=== PATIENT | female | born 1985 | race African-American/Black ===

== ENCOUNTER 2016-06-17 10:40 | Emergency (ER) | payer BC ==
[2016-06-17 10:50] VITALS: BP 129/81
--- NOTE | 2016-06-17 11:48 | ED ---
HPI Febrile Illness - HPI Summary HPI Summary: 31 week with twin - Past 24 hours- fever at home, tactile "burning up" - pain with deep breathing, coughing. Able to breath as well as before- difficult due to obstruction for twins. - H/O asthma, no recent exacerbations. - No complications thus from from , follows Dr. Bergman - Toña- digoxin for SVT, (believes normal heart rate is 90's) and vitamin - + increased coughing all night, pain at diaphragm - Denies SOB, leg swelling, calf pain, chest pain/ heart racing - ? Left lower back pain yesterday - + [employer] [place], have been occurring for weeks, no change to intensity/ frequency - History of Current Complaint Chief Complaint: EDUpperRespComplaint Time Seen by Provider: 06/17/16 10:59 Hx Obtained From: Patient Onset/Duration: Started Days Ago, Atraumatic, Still Present Temperature: 99.9 F Initial Severity: Mild Current Severity: Moderate Pain Intensity: 6 Pain Scale Used: 0-10 Numeric - Allergy/Home Medications Allergies/Adverse Reactions: Allergies Allergy/AdvReac Type Severity Reaction Status Date / Time Sulfa Antibiotics Allergy Severe N/V, Verified 06/17/16 10:44 "MAKES ME GASSY" Hydrocodone [From Vicodin] Allergy Itching Verified 06/17/16 10:44 PMH/Surg Hx/FS Hx/Imm Hx Endocrine/Hematology History: Denies: Hx Diabetes, Hx Thyroid Disease Cardiovascular History: Denies: Hx Hypertension Respiratory History: Reports: Hx Asthma Denies: Hx Chronic Obstructive Pulmonary Disease (COPD) GI History: Reports: Hx Ulcer Musculoskeletal History: Denies: Hx Rheumatoid Arthritis, Hx Osteoporosis, Hx Scoliosis Sensory History: Reports: Hx Contacts or Glasses Opthamlomology History: Reports: Hx Contacts or Glasses Neurological History: Denies: Hx Headaches, Other Neuro Impairments/Disorders Infectious Disease History: No Infectious Disease History: Denies: Hx Clostridium Difficile, Hx Hepatitis, Hx Human Immunodeficiency Virus (HIV), Hx of Known/Suspected MRSA, Hx Shingles, Hx Tuberculosis, History Other Infectious Disease, Traveled Outside the [place] in Last 30 Days - Family History Known Family History: Positive: None, Cardiac Disease, Hypertension, Diabetes - Social History Alcohol Use: None Substance Use Type: Reports: None Smoking Status (MU): Former Smoker Type: Cigarettes Amount Used/How Often: 1 cig a day currently, hasn't had any in one week Have You Smoked in the Last Year: Yes Review of Systems Positive: Chills Eyes: Negative ENT: Negative Cardiovascular: Negative Positive: Cough Gastrointestinal: Negative Genitourinary: Negative Musculoskeletal: Negative Skin: Negative Neurological: Negative Psychological: Normal All Other Systems Reviewed And Are Negative: Yes Physical Exam Triage Information Reviewed: Yes Vital Signs On Initial Exam: Initial Vitals Temp Pulse Resp BP Pulse Ox 99.9 F 109 16 129/81 99 06/17/16 10:44 06/17/16 10:44 06/17/16 10:44 06/17/16 10:44 06/17/16 10:44 Vital Signs Reviewed: Yes Appearance: Positive: Well-Appearing, Well-Nourished, Pain Distress - minimal pain with coughing, sore throat Skin: Positive: Warm, Skin Color Reflects Adequate Perfusion Head/Face: Positive: Normal Head/Face Inspection Eyes: Positive: Normal, EOMI ENT: Positive: Normal ENT inspection, Hearing grossly normal, Pharyngeal erythema - minimal erythema, no exudates seen, no swelling, TMs normal Neck: Positive: Supple, Nontender, No Lymphadenopathy Respiratory/Lung Sounds: Positive: Clear to Auscultation, Breath Sounds Present Cardiovascular: Positive: Normal, RRR, Pulses are Symmetrical in both Upper and Lower Extremities Abdomen Description: Positive: Nontender, Other: - measuring ~34 weeks gestation , +multigestational FHTs 140 two hrtbts found Musculoskeletal: Positive: Normal, Strength/ROM Intact Neurological: Positive: Normal, Sensory/Motor Intact, Alert, Oriented to Person Place, Time Diagnostics - Vital Signs Vital Signs Temp Pulse Resp BP Pulse Ox 06/17/16 11:23 99.3 F 93 15 100 06/17/16 10:44 99.9 F 109 16 129/81 99 - Laboratory Lab Statement: Any lab studies that have been ordered have been reviewed, and results considered in the medical decision making process. Course/Dx - Course Course Of Treatment: Discussed with Dr Alonzo, no tamiflu, no ABX OTC treatment, follow up with LICENSED PSYCHOLOGIST return to ER with increased SOB, chest pain. Patient has albuterol at home, script for lozenges given - Febrile Illness Differential Diagnoses: Cellulitis, Encephalitis, Meningitis, Pneumonia - Diagnoses Provider Diagnoses: Upper respiratory infection Discharge - Discharge Plan Condition: Stable Disposition: HOME Prescriptions: Acetaminophen TAB* [Tylenol TAB*] 650 mg PO Q4H PRN #60 tab PRN Reason: pain, fever Benzocaine-Menthol (Mouth-Thro [Cepacol Sore Throat 15-3.6 mg] 1 [place] MT Q3HR PRN #40 austen PRN Reason: Cough Patient Education Materials: Upper Respiratory Infection (ED) Referrals: Ingrid Islas MD [Primary Care Provider] - Additional Instructions: - Increase fluid intake - Follow up with LICENSED PSYCHOLOGIST within 24 hours if symptoms worsen or no improvement - Use humidifier to decrease coughing - REturn to ER with chest pain, shortness of breath, leg swelling, or calf pain - Cepacol for throat pain - Tylenol for fever, aches
[2016-06-17] MEDS ORDERED: Acetaminophen TAB* 325 MG PO ONE (12:02)
[2016-06-17 13:14] LABS: Urine Bacteria 1+ (Absent); Urine Bilirubin Negative (Negative); Urine Glucose Negative (Negative); Urine Nitrite Negative (Negative)
== END 2016-06-17 13:15 | disposition home or self-care (01) ==
LOC: ED 10:40
DX: O98.813 Other maternal infectious and parasitic diseases complicating pregnancy, third trimester (principal); J06.9 Acute upper respiratory infection, unspecified; O30.003 Twin pregnancy, unspecified number of placenta and unspecified number of amniotic sacs, third trimester; Z3A.31 31 weeks gestation of pregnancy; I47.1 Supraventricular tachycardia; O26.893 Other specified pregnancy related conditions, third trimester; Z88.2 Allergy status to sulfonamides; Z88.5 Allergy status to narcotic agent; O99.333 Smoking (tobacco) complicating pregnancy, third trimester
CPT/HCPCS: 81003; 81015; 87086; 87502; 99282; A9270-GY

== ENCOUNTER 2016-07-07 11:34 | Inpatient (IN) | payer OTHER ==
[2016-07-07] MEDS ORDERED: Lidocaine 1% MPF* 2 ML VIAL ONE (13:49)
[2016-07-07] MEDS ORDERED: Sodium Citrate/Citric Acid* 15 ML UDC PO ONE (14:00)
[2016-07-07 14:23] LABS: Hematocrit 33 % (35-47); Hemoglobin 10.8 g/dl (12.0-16.0); Mean Corpuscular HGB Conc 33 g/dl (31-36); Mean Corpuscular Hemoglobin 28 pg (27-31); Mean Corpuscular Volume 84 fL (80-97); Mean Platelet Volume 11 um3 (7.4-10.4); Red Cell Distribution Width 13 % (10.5-15)
[2016-07-07 14:30] LABS: Comments Flag Yes
[2016-07-07] MEDS ORDERED: ceFOXitin 2 GM IVPREMIX* 2 GM/50 ML BAG IVPB ONE (14:30)
[2016-07-07 14:32] LABS: Add Diff/Slide Review? Slide Review Added
[2016-07-07] MEDS ORDERED: Morphine PF AMP (0.5MG/ML)* 5 MG/10 ML AMP ONE (15:04)
[2016-07-07] MEDS ORDERED: Ondansetron INJ* 2 MG/ML VIAL ONE (16:05)
[2016-07-07] MEDS ORDERED: OXYTOCIN* 10 UNITS/ML 1 ML VIAL ONE (16:05)
[2016-07-07] MEDS ORDERED: fentaNYL* 50 MCG/ML 2 ML VIAL (100 MCG VIAL) ONE (16:08)
[2016-07-07] MEDS ORDERED: Midazolam* 1 MG/ML 2 ML VIAL (2 MG) ONE (16:08)
[2016-07-07] MEDS ORDERED: HYDROmorphone* 1 MG/ML 1 ML SYR ONE (16:18)
[2016-07-07] MEDS ORDERED: Witch Hazel PAD* JAR TOPICAL PRN (16:40)
[2016-07-07] MEDS ORDERED: Dibucaine 1% 28.35 GM TUBE PR PRN (16:40)
[2016-07-07] MEDS ORDERED: Acetaminophen TAB* 325 MG PO PRN (16:40)
[2016-07-07] MEDS ORDERED: Glycerin ADULT SUPP PR PRN (16:40)
[2016-07-07] MEDS ORDERED: oxyCODONE/Acetamin 5/325 MG* TAB PO PRN ×2 (16:40→18:56)
[2016-07-07] MEDS ORDERED: Oxytocin in LR* 20 UNITS/1,000 ML BAG IVPB SCH (17:00)
[2016-07-07] MEDS: oxyCODONE/Acetamin 5/325 MG* TAB PO PRN (18:39)
[2016-07-07] MEDS: Simethicone CHEW TAB* 80 MG PO SCH ×2 (18:40→21:05)
[2016-07-07] MEDS: Ibuprofen TAB* 600 MG PO PRN (18:40)
[2016-07-07] MEDS ORDERED: DiMENhydriNATE IV* 50 MG/ML VIAL IV PUSH PRN (18:56)
[2016-07-07] MEDS ORDERED: Nalbuphine* 20 MG/ML 1 ML VIAL IV PRN (18:56)
[2016-07-07] MEDS ORDERED: Naloxone* 0.4 MG/ML 1 ML VIAL IV PRN (18:56)
[2016-07-07] MEDS ORDERED: PROCHLORPERAZINE INJ 5 MG/ML 2 ML VIAL IV PRN (18:56)
[2016-07-07] MEDS ORDERED: diPHENhydraMINE IV* 50 MG/ML 1 ml VIAL (BENADRYL) IV PRN (18:56)
[2016-07-07] MEDS ORDERED: Scopolamine 1.5 mg* PATCH TRANSDERM SCH (19:00)
[2016-07-07] MEDS ORDERED: Scopolomine PATCH Remove* 1 NOTE MISC PATCH OFF SCH (19:00)
[2016-07-07] MEDS: Ondansetron INJ* 2 MG/ML VIAL IV PRN (20:57)
[2016-07-07] MEDS: Docusate CAP* 100 MG PO SCH (21:05)
[2016-07-08] MEDS: Ondansetron INJ* 2 MG/ML VIAL IV PRN (04:59)
[2016-07-08] MEDS: Ibuprofen TAB* 600 MG PO PRN ×3 (04:59→17:25)
[2016-07-08 08:13] LABS: Hematocrit 29 % (35-47); Hemoglobin 9.5 g/dl (12.0-16.0); Mean Corpuscular HGB Conc 33 g/dl (31-36); Mean Corpuscular Hemoglobin 28 pg (27-31); Mean Corpuscular Volume 84 fL (80-97); Mean Platelet Volume 11 um3 (7.4-10.4); Red Cell Distribution Width 14 % (10.5-15); White Blood Count 14.5 10^3/ul (3.5-10.8)
[2016-07-08] MEDS: Docusate CAP* 100 MG PO SCH ×3 (10:00→23:26)
[2016-07-08] MEDS: Simethicone CHEW TAB* 80 MG PO SCH ×4 (10:06→23:26)
--- NOTE | 2016-07-08 10:58 | OP ---
OPERATIVE REPORT: DATE OF OPERATION: 07/07/16 DATE OF : 83 SURGEON: Sushila Olea MD BRINEYARD SUPERVISOR: Dr. Alonzo. ANESTHESIOLOGIST: Dr. Rashid. ANESTHESIA: Spinal. PRE-OP DIAGNOSIS: 1. Intrauterine , twin gestation at 34 weeks, with premature rupture or membranes. 2. Twin gestation baby A breech, baby B vertex. POST-OP DIAGNOSIS: 1. Intrauterine , twin gestation at 34 weeks, with premature rupture or membranes. 2. Twin gestation baby A breech, baby B vertex. OPERATIVE PROCEDURE: Primary low transverse section. ESTIMATED BLOOD LOSS: 500 cc. URINE OUTPUT: 250 cc of clear yellow urine. FLUIDS: 2900 cc of crystalloid. FINDINGS: Revealed baby A breech, Apgars 9 at one minute, 9 at five minutes. Weight was 3 pounds 12 ounces, male infant. Baby B vertex, female infant, weight was 3 pounds 12 ounces. Apgars 9 at one minute, 9 at five minutes. No nuchal cord in either baby. No meconium in either baby. Normal shaila earing tubes and ovaries bilaterally. Placenta was normally extracted. Two placentas intact. Thre e vessel cord x2. COMPLICATIONS: None apparent. DISPOSITION: Stable to recovery room. DESCRIPTION OF PROCEDURE: The patient was placed in the dorsal lithotomy position. Abdomen was prep ped and draped in a sterile standard fashion. The patient was identified with universal protocol. Anesthesia was tested to appropriate level. An incision was made 2 fingerbreadths above the pubic sy mphysis with a scalpel. This was then carried down through to the fascia. The fascia was scored in the midline. The fascial incision was extended laterally and superiorly using Thibodeaux scissors. The f ascia was dissected with sharp and blunt dissection both superiorly and inferiorly. The fascia was dissected from the rectus muscle. Peritoneum was then entered bluntly. Bladder blade was inserted. The lower uterine segment was identified, an incision was made in the lower uterine segment with a scalpel. This was carried down through to the membranes. The incision was extended laterally and superiorly using bandage scissors. The first baby to present was baby A, which was noted to be petty k breech, the baby was delivered in a standard fashion. Right shoulder and then left shoulder deliv ered. Head delivered spontaneously. No evidence of nuchal cord. No evidence of meconium. Cord wa s doubly clamped and cut, and the was handed off to the waiting blacksmith assistant, Dr. Brizuela. The second baby, baby B, was noted to be vertex and the amniotomy was created for clear fluid. Bab y was delivered through the hysterotomy site. Anterior and posterior shoulders delivered. No evide nce of nuchal cord. Cord was milked and then clamped and cut, and the baby was handed off to the [facility] blacksmith assistant. Appropriate cord bloods were obtained from other placenta and were marked accor dingly to A and B. Placenta was manually extracted x2 and noted to be intact x2. Uterus was exteri orized. Cavity was wiped clean with moist laparotomy sponge. Broad Allis' were placed on the hyster otomy site and the incision itself was then reapproximated using 0 Vicryl x2 in a running fashion. The uterus was returned intra-abdominally. Colic gutters were lavaged. The peritoneum was clamped with Ranjana's. A [id number] suture was required in the midline of a hysterotomy site x1 for com plete hemostasis of the hysterotomy site. The peritoneum was closed with 3-0 Vicryl x1 in a running fashion and subfascial areas visualized and noted to be hemostatic with Bovie coagulation and the f ascia itself was then reapproximated using 0 Vicryl x2 in a running fashion. Sponge, needle, instru ment, blade counts were correct throughout the case. The patient tolerated the procedure well and w ent to recovery room in stable condition. [id number]/[facility] #: [id number]
[2016-07-08] MEDS: Ferrous Gluconate TAB* 324 MG TAB PO SCH ×2 (11:33→23:26)
[2016-07-08] MEDS ORDERED: Digoxin TAB* 0.125 MG PO SCH (17:00)
[2016-07-08] MEDS: oxyCODONE/Acetamin 5/325 MG* TAB PO PRN ×2 (18:26→23:55)
[2016-07-08] MEDS: Digoxin TAB* 0.125 MG PO SCH (23:25)
[2016-07-09] MEDS: Ibuprofen TAB* 600 MG PO PRN ×3 (06:06→21:03)
[2016-07-09] MEDS: Ferrous Gluconate TAB* 324 MG TAB PO SCH ×2 (08:00→21:03)
[2016-07-09] MEDS: Simethicone CHEW TAB* 80 MG PO SCH ×4 (08:01→21:03)
[2016-07-09] MEDS: Docusate CAP* 100 MG PO SCH ×3 (08:03→21:19)
[2016-07-09] MEDS: oxyCODONE/Acetamin 5/325 MG* TAB PO PRN ×2 (10:10→15:35)
[2016-07-09] MEDS: Digoxin TAB* 0.125 MG PO SCH (22:53)
[2016-07-10 02:36] VITALS: BP 138/79
[2016-07-10] MEDS: Ibuprofen TAB* 600 MG PO PRN (02:38)
[2016-07-10] MEDS: oxyCODONE/Acetamin 5/325 MG* TAB PO PRN (03:43)
[2016-07-10] MEDS ORDERED: Ibuprofen ADULT LIQ* 600 MG/30 ML UDC PO PRN (08:58)
[2016-07-10] MEDS ORDERED: Ferrous Sulfate LIQ* 300 MG/5 ML UDC PO SCH (09:00)
[2016-07-10] MEDS: Docusate CAP* 100 MG PO SCH (09:36)
[2016-07-10] MEDS: Simethicone CHEW TAB* 80 MG PO SCH (09:37)
[2016-07-10] MEDS: Ferrous Gluconate TAB* 324 MG TAB PO SCH (09:40)
== END 2016-07-10 10:04 | disposition home or self-care (01) | DRG 765 ==
LOC: MCHOBOUT 11:34 → MCHOB 14:08
PROVIDERS: ADMIT Obstetrics & Gynecology; ATTEND Obstetrics & Gynecology
PROC: 10D00Z1 Extraction of Products of Conception, Low, Open Approach (ICD-10-PCS; principal; 2016-07-07 15:24)
DX: O32.1XX1 Maternal care for breech presentation, fetus 1 (principal); O30.003 Twin pregnancy, unspecified number of placenta and unspecified number of amniotic sacs, third trimester; Z37.2 Twins, both liveborn; O42.913 Preterm premature rupture of membranes, unspecified as to length of time between rupture and onset of labor, third trimester; Z3A.34 34 weeks gestation of pregnancy
CPT/HCPCS: 36415; 85025; 86850; 86900; 86901; 88307; A9270-GY; J0694; J1170; J2250; J2405; J2590; J3010

== ENCOUNTER 2017-01-20 13:16 | Emergency (ER) | payer BC, OTHER ==
[2017-01-20] MEDS ORDERED: NS 0.9% 1000 ML* 1,000 ML IV ONE (14:24)
[2017-01-20 14:56] LABS: Hematocrit 42 % (35-47); Hemoglobin 13.7 g/dl (12.0-16.0); Mean Corpuscular HGB Conc 33 g/dl (31-36); Mean Corpuscular Hemoglobin 27 pg (27-31); Mean Corpuscular Volume 84 fL (80-97); Mean Platelet Volume 8 um3 (7.4-10.4); Red Blood Count 4.98 10^6/ul (4.0-5.4); Red Cell Distribution Width 16 % (10.5-15); White Blood Count 7.1 10^3/ul (3.5-10.8)
--- NOTE | 2017-01-20 15:01 | RAD ---
INDICATION: Chest pain COMPARISON: September 23, 2011 TECHNIQUE: An AP portable view obtained at 1550 hours is submitted. FINDINGS: Bones/Soft Tissues: There are no acute bony findings. Cardiomediastinal: The cardiomediastinal silhouette is normal. Lungs: There are no infiltrates. There is no pneumothorax Pleura: There are no pleural effusions. Other: None IMPRESSION: NO ACTIVE DISEASE.
[2017-01-20 15:17] LABS: Albumin 3.7 g/dL (3.2-5.2); BUN/Creatinine Ratio 19.2 (8-20); C Reactive Protein 4.9 mg/L (< 5.00); Calcium 9.4 mg/dL (8.6-10.3); EGFR African American 118.8 (>60); EGFR Non-African American 92.4 (>60); Globulin 3.5 g/dL (2-4); Magnesium 1.9 mg/dL (1.9-2.7); Total Bilirubin 0.3 mg/dL (0.2-1.0); Total Protein 7.2 g/dL (6.4-8.9)
[2017-01-20 15:18] LABS: Potassium 4.4 mmol/L (3.5-5.0)
[2017-01-20 15:32] LABS: TSH (Thyroid Stimulating Horm) 0.98 mcIU/mL (0.34-5.60)
--- NOTE | 2017-01-20 17:06 | ED ---
Jennie Gastelum Edward, scribed for Emir Fonseca MD on 01/20/17 at 1417 . HPI Chest Pain - HPI Summary HPI Summary: 31 y/o female presents to ED c/o intermittent CP located in the mid-sternal region. The pain does not radiate. It is rated 6-7/10 in severity. The episodes are described as dull/burning pains that turn into sharp pains, all of which lasts seconds. Pt states she has had these pains for two months since her ablation two months ago. SHx ablation ([place] November 2016). PMHx SVT. Pt states she intermittently feels like her heart will begin to flutter. Associated sx: SOB with activity, bilateral pedal edema every morning when she wakes up. Denies ABD pain. - History of Current Complaint Chief Complaint: EDChestPainROMI Time Seen by Provider: 01/20/17 14:11 Hx Obtained From: Patient Hx Last Menstrual Period: 02/28/15 Onset/Duration: Started Weeks Ago - 2 months Timing: Intermittent, Lasting Seconds Current Severity: Mild Pain Intensity: 3 Pain Scale Used: 0-10 Numeric Chest Pain Location: Mid Sternal Chest Pain Radiates: No Character: Dull/Aching, Sharp/Stabbing Associated Signs and Symptoms: Positive: Shortness of Breath - with activity, Edema - Bilateral pedal edema every morning. Negative: Abdominal Pain - Allergy/Home Medications Allergies/Adverse Reactions: Allergies Allergy/AdvReac Type Severity Reaction Status Date / Time Sulfa Antibiotics Allergy Severe N/V, Verified 01/20/17 13:34 "MAKES ME GASSY" Hydrocodone [From Vicodin] Allergy Itching Verified 01/20/17 13:34 PMH/Surg Hx/FS Hx/Imm Hx Previously Healthy: No Endocrine/Hematology History: Denies: Hx Diabetes, Hx Thyroid Disease Cardiovascular History: Denies: Hx Hypertension Respiratory History: Reports: Hx Asthma Denies: Hx Chronic Obstructive Pulmonary Disease (COPD) GI History: Reports: Hx Ulcer Musculoskeletal History: Denies: Hx Rheumatoid Arthritis, Hx Osteoporosis, Hx Scoliosis Sensory History: Reports: Hx Contacts or Glasses Opthamlomology History: Reports: Hx Contacts or Glasses Neurological History: Denies: Hx Headaches, Other Neuro Impairments/Disorders Infectious Disease History: No Infectious Disease History: Denies: Hx Clostridium Difficile, Hx Hepatitis, Hx Human Immunodeficiency Virus (HIV), Hx of Known/Suspected MRSA, Hx Shingles, Hx Tuberculosis, History Other Infectious Disease, Traveled Outside the [place] in Last 30 Days - Family History Known Family History: Positive: Cardiac Disease, Hypertension, Diabetes - Social History Alcohol Use: None Hx Substance Use: No Substance Use Type: Reports: None Hx Tobacco Use: Yes Smoking Status (MU): Former Smoker Type: Cigarettes Amount Used/How Often: 1 cig a day currently, hasn't had any in one week Have You Smoked in the Last Year: Yes Review of Systems Constitutional: Negative Eyes: Negative ENT: Negative Positive: Chest Pain, Other - Intermittent "flutters" Positive: Shortness Of Breath Gastrointestinal: Negative Negative: Abdominal Pain Genitourinary: Negative Positive: Edema - bilateral pedal edema every morning Skin: Negative Neurological: Negative Psychological: Normal All Other Systems Reviewed And Are Negative: Yes Physical Exam Triage Information Reviewed: Yes Vital Signs On Initial Exam: Initial Vitals Temp Pulse Resp BP Pulse Ox 98.2 F 79 18 120/75 100 01/20/17 13:22 01/20/17 13:22 01/20/17 13:22 01/20/17 13:22 01/20/17 13:22 Vital Signs Reviewed: Yes Appearance: Positive: Well-Appearing, No Pain Distress Skin: Positive: Warm, Skin Color Reflects Adequate Perfusion, Dry Head/Face: Positive: Normal Head/Face Inspection Eyes: Positive: EOMI, MATTHEW ENT: Positive: Normal ENT inspection Neck: Positive: Supple, Nontender Respiratory/Lung Sounds: Positive: Clear to Auscultation, Breath Sounds Present Cardiovascular: Positive: RRR Abdomen Description: Positive: Nontender, Soft Bowel Sounds: Positive: Present Musculoskeletal: Positive: Normal, Strength/ROM Intact Neurological: Positive: Normal, Sensory/Motor Intact, Alert, Oriented to Person Place, Time Psychiatric: Positive: Normal, Affect/Mood Appropriate - Christa Coma Scale Coma Scale Total: 15 Diagnostics - Vital Signs Vital Signs Temp Pulse Resp BP Pulse Ox 01/20/17 13:39 75 18 100 01/20/17 13:37 128/70 01/20/17 13:32 98.2 F 79 18 120/75 98 01/20/17 13:22 98.2 F 79 18 120/75 100 - Laboratory Lab Results: Lab Results 01/20/17 01/20/17 01/20/17 Range/Units 14:40 14:40 14:40 WBC 7.1 (3.5-10.8) 10^3/ul RBC 4.98 (4.0-5.4) 10^6/ul Hgb 13.7 (12.0-16.0) g/dl Hct 42 (35-47) % MCV 84 (80-97) fL MCH 27 (27-31) pg MCHC 33 (31-36) g/dl RDW 16 H (10.5-15) % Plt Count 351 (150-450) 10^3/ul MPV 8 (7.4-10.4) um3 Neut % (Auto) 67.5 (38-83) % Lymph % (Auto) 23.7 L (25-47) % [place] % (Auto) 3.8 (1-9) % Eos % (Auto) 3.7 (0-6) % Baso % (Auto) 1.3 (0-2) % Absolute Neuts (auto) 4.8 (1.5-7.7) 10^3/ul Absolute Lymphs (auto) 1.7 (1.0-4.8) 10^3/ul Absolute Monos (auto) 0.3 (0-0.8) 10^3/ul Absolute Eos (auto) 0.3 (0-0.6) 10^3/ul Absolute Basos (auto) 0.1 (0-0.2) 10^3/ul Absolute Nucleated RBC 0 10^3/ul Nucleated RBC % 0.1 INR (Anticoag Therapy) 0.85 L (0.89-1.11) APTT 29.3 (26.0-36.3) seconds D-Dimer, Quantitative < 200 (Less Than 230) ng/mL Sodium 136 (133-145) mmol/L Potassium 4.4 (3.5-5.0) mmol/L Chloride 107 (101-111) mmol/L Carbon Dioxide 26 (22-32) mmol/L Anion Gap 3 (2-11) mmol/L BUN 14 (6-24) mg/dL Creatinine 0.73 (0.51-0.95) mg/dL Est GFR ( Amer) 118.8 (>60) Est GFR (Non-Af Amer) 92.4 (>60) BUN/Creatinine Ratio 19.2 (8-20) Glucose 83 (70-100) mg/dL Lactic Acid (0.5-2.0) mmol/L Calcium 9.4 (8.6-10.3) mg/dL Magnesium 1.9 (1.9-2.7) mg/dL Total Bilirubin 0.30 (0.2-1.0) mg/dL AST 16 (13-39) U/L ALT 11 (7-52) U/L Alkaline Phosphatase 87 (34-104) U/L Total Creatine Kinase 94 (10-223) U/L CK-MB (CK-2) 1.5 (0.6-6.3) ng/mL Troponin I 0.00 (<0.04) ng/mL C-Reactive Protein 4.90 (< 5.00) mg/L B-Natriuretic Peptide ( - 100) pg/mL Total Protein 7.2 (6.4-8.9) g/dL Albumin 3.7 (3.2-5.2) g/dL Globulin 3.5 (2-4) g/dL Albumin/Globulin Ratio 1.1 (1-3) Lipase 30 (11.0-82.0) U/L TSH 0.98 (0.34-5.60) mcIU/mL 01/20/17 01/20/17 Range/Units 14:40 14:40 WBC (3.5-10.8) 10^3/ul RBC (4.0-5.4) 10^6/ul Hgb (12.0-16.0) g/dl Hct (35-47) % MCV (80-97) fL MCH (27-31) pg MCHC (31-36) g/dl RDW (10.5-15) % Plt Count (150-450) 10^3/ul MPV (7.4-10.4) um3 Neut % (Auto) (38-83) % Lymph % (Auto) (25-47) % [place] % (Auto) (1-9) % Eos % (Auto) (0-6) % Baso % (Auto) (0-2) % Absolute Neuts (auto) (1.5-7.7) 10^3/ul Absolute Lymphs (auto) (1.0-4.8) 10^3/ul Absolute Monos (auto) (0-0.8) 10^3/ul Absolute Eos (auto) (0-0.6) 10^3/ul Absolute Basos (auto) (0-0.2) 10^3/ul Absolute Nucleated RBC 10^3/ul Nucleated RBC % INR (Anticoag Therapy) (0.89-1.11) APTT (26.0-36.3) seconds D-Dimer, Quantitative (Less Than 230) ng/mL Sodium (133-145) mmol/L Potassium (3.5-5.0) mmol/L Chloride (101-111) mmol/L Carbon Dioxide (22-32) mmol/L Anion Gap (2-11) mmol/L BUN (6-24) mg/dL Creatinine (0.51-0.95) mg/dL Est GFR ( Amer) (>60) Est GFR (Non-Af Amer) (>60) BUN/Creatinine Ratio (8-20) Glucose (70-100) mg/dL Lactic Acid 0.9 (0.5-2.0) mmol/L Calcium (8.6-10.3) mg/dL Magnesium (1.9-2.7) mg/dL Total Bilirubin (0.2-1.0) mg/dL AST (13-39) U/L ALT (7-52) U/L Alkaline Phosphatase (34-104) U/L Total Creatine Kinase (10-223) U/L CK-MB (CK-2) (0.6-6.3) ng/mL Troponin I (<0.04) ng/mL C-Reactive Protein (< 5.00) mg/L B-Natriuretic Peptide 63 ( - 100) pg/mL Total Protein (6.4-8.9) g/dL Albumin (3.2-5.2) g/dL Globulin (2-4) g/dL Albumin/Globulin Ratio (1-3) Lipase (11.0-82.0) U/L TSH (0.34-5.60) mcIU/mL Result Diagrams: 01/20/17 14:40 01/20/17 14:40 Lab Statement: Any lab studies that have been ordered have been reviewed, and results considered in the medical decision making process. - Radiology CXR Xray Interpretation: No Acute Changes - NAD Radiology Interpretation Completed By: Radiologist - EKG 1 EKG Rhythm: Sinus Rhythm - @ 77 bpm Ectopy: None EKG Interpretation: 13:39 - Borderline T abnormalities Re-Evaluation - Re-Evaluation 1 Re-Evaluation Time: 16:44 Comment: Discussed test and imaging results Chest Pain Course/Dx - Course Course Of Treatment: DISCUSSED RESULTS WITH PATIENT. NO ECTOPY SEEN ON MONITOR. F/U WITH CARDIOLOGY SCHEDULED FOR 01/28/17. - Diagnoses Provider Diagnoses: Chest pain Discharge - Discharge Plan Condition: Stable Disposition: HOME Patient Education Materials: Chest Pain (ED) Referrals: Melani Aguilar CNM [Primary Care Provider] - Additional Instructions: FOLLOW UP WITH CARDIOLOGY SCHEDULED, 01/28/17. RETURN TO THE EMERGENCY DEPARTMENT FOR ANY WORSENING OF YOUR CONDITION; CHEST PAIN, SHORTNESS OF BREATH, YOU FEEL ILL, YOU FEEL LIKE PASSING OUT OR QUESTIONS OR CONCERNS. The documentation as recorded by the Jennie patrick Edward accurately reflects the service I personally performed and the decisions made by me, Emir Fonseca MD.
[2017-01-20 17:09] VITALS: BP 114/72
== END 2017-01-20 17:16 | disposition home or self-care (01) ==
LOC: ED 13:16
DX: R07.9 Chest pain, unspecified (principal); R06.02 Shortness of breath; Z87.891 Personal history of nicotine dependence
CPT/HCPCS: 36415; 71010; 80053; 82550; 82553; 83605; 83690; 83735; 83880; 84443; 84484; 85025; 85379; 85610; 85730; 86140; 93005; 99283

== ENCOUNTER 2017-02-12 15:21 | Emergency (ER) | payer SELFPAY ==
[2017-02-12 15:33] VITALS: BP 130/88
--- NOTE | 2017-02-12 16:59 | UC ---
Lower Extremity/Ankle HPI - HPI Summary HPI Summary: 31 y/o female presents to the urgent care c/o RT knee pain s/p tripping and falling at work. Pt reports she works in the [employer]. Pain is 5 /10 specially with movement, mild swelling on the medial side of RT knee. Pt can ambulate. She has taking Ibuprofen Po which has improve symptoms. Pt denies numbness, or tingling over the lower leg, fever, SOB, chest pain, N/V/D - History of Current Complaint Chief Complaint: UCLowerExtremity Stated Complaint: KNEE INJURY Time Seen by Provider: 02/12/17 16:43 Hx Obtained From: Patient Hx Last Menstrual Period: 02/01/17 ?: No Onset/Duration: Sudden Onset, Lasting Days - 1 day, Still Present Severity Initially: Moderate Severity Currently: Moderate Pain Intensity: 5 Pain Scale Used: 0-10 Numeric Aggravating Factor(s): Ambulation Alleviating Factor(s): Rest, Ice, OTC Meds Able to Bear Weight: Yes Related History: Occupational Injury - Pt was at work [employer] - Risk Factors Gout Risk Factors: Negative DVT Risk Factors: Negative Septic Arthritis Risk Factor: Negative - Allergies/Home Medications Allergies/Adverse Reactions: Allergies Allergy/AdvReac Type Severity Reaction Status Date / Time Sulfa Antibiotics Allergy Severe N/V, Verified 02/12/17 15:33 "MAKES ME GASSY" Hydrocodone [From Vicodin] Allergy Itching Verified 02/12/17 15:33 Home Medications: Home Medications ALPRAZolam TAB* [Xanax TAB*] 0.25 mg PO Q6H PRN 02/12/17 [History Confirmed 05/19] Sertraline* [Zoloft*] 25 mg PO DAILY 02/12/17 [History Confirmed 02/12/17] PMH/Surg Hx/FS Hx/Imm Hx Previously Healthy: Yes Other Respiratory History: seasonal allergies Psychological History: Depression - Surgical History Surgical History: Yes Surgery Procedure, Year, and Place: cardiac ablation for SVT. c section - Family History Known Family History: Positive: Cardiac Disease, Hypertension, Diabetes Family History: Dyslipidemia - Social History Occupation: Employed Full-time Lives: With Family Alcohol Use: None Substance Use Type: None Smoking Status (MU): Former Smoker Type: Cigarettes Amount Used/How Often: 1 cig a day currently, hasn't had any in one week Have You Smoked in the Last Year: Yes When Did the Patient Quit Smoking/Using Tobacco: JUNE 2014 Household Exposure Type: Cigarettes - Immunization History Most Recent Influenza Vaccination: none Most Recent Tetanus Shot: unknown Most Recent Pneumonia Vaccination: none Review of Systems Constitutional: Negative Skin: Negative Eyes: Negative ENT: Negative Respiratory: Negative Cardiovascular: Negative Gastrointestinal: Negative Genitourinary: Negative Motor: Negative Neurovascular: Negative Musculoskeletal: Other: - RT knee pain s/p fall at work Neurological: Negative Psychological: Negative Is Patient Immunocompromised?: No All Other Systems Reviewed And Are Negative: Yes Physical Exam Triage Information Reviewed: Yes Appearance: Well-Appearing, No Pain Distress, Well-Nourished, Obese Vital Signs: Initial Vital Signs Temp 98.9 F 02/12/17 15:28 Pulse 89 02/12/17 15:28 Resp 14 02/12/17 15:28 BP 130/88 02/12/17 15:28 Pulse Ox 100 02/12/17 15:28 Vital Signs Reviewed: Yes Eye Exam: Normal Eyes: Positive: Conjunctiva Clear - PERRLA, EOMI ENT Exam: Normal ENT: Positive: Normal ENT inspection, Hearing grossly normal, Pharynx normal, TMs normal Neck exam: Normal Neck: Positive: Supple, Nontender, No Lymphadenopathy Respiratory Exam: Normal Respiratory: Positive: Chest non-tender, Lungs clear, Normal breath sounds Cardiovascular Exam: Normal Cardiovascular: Positive: RRR, No Murmur, Pulses Normal, Brisk Capillary Refill Abdominal Exam: Normal Abdomen Description: Positive: Nontender, No Organomegaly, Soft. Negative: CVA Tenderness (R), CVA Tenderness (L) Bowel Sounds: Positive: Present Musculoskeletal: Positive: Strength Intact, Other: - Pt is able to bear weight and ambulate with mild pain. RT knee medial aspect with mild erythema and swelling, tender to palpation,The R knee is without obvious asymmetry or deformity when compared with the LF knee. Decrease ROM due to pain. Drawer test: neagtive, VArus & Valgus test: negative, MCMurrays" test negative, Positive pulses, capillary refill brisk, Positive sensation, and reflexes intact Neurological Exam: Normal Psychological Exam: Normal Skin Exam: Normal Lower Extremity Course/Dx - Course Course Of Treatment: 31 y/o female presents to the urgent care c/o RT knee pain s/p tripping and falling at work. Pt reports she works in the [employer]. Pain is 5/10 specially with movement, mild swelling on the medial side of RT knee. Pt can ambulate. She has taking Ibuprofen PO which has improve symptoms. Pt denies numbness, or tingling over the lower leg, fever, SOB , chest pain, N/V/D. RT knee X-ray ordered: negative for Fracture. Pt with probably with ankle sprain. Pt Rx Ibuprofen Po for pain and swelling. Pt's knee immobilized with Jairo bandage, and advised RICE. I discussed all the findings and test results with the patient. Patient was instructed to f/u with Orthopedic Dr if not improvement of symptoms in 3 days. Plan of care was discussed with the patient and understands and agrees. All questions were answered at patient satisfaction. There were no further complaints or concerns. Pt left the clinic ambulating and A&OX3. - Differential Dx/Diagnosis Differential Diagnosis/HQI/PQRI: Arthritis, Contusion, Fracture (Closed), Sprain , Strain, Tendonitis Provider Diagnoses: 1-RT knee pain Discharge - Discharge Plan Condition: Stable Disposition: HOME Prescriptions: Ibuprofen TAB* [Motrin TAB* 800 MG] 800 mg PO Q6H #30 tab Patient Education Materials: Knee Sprain (ED) Forms: *Work Release Referrals: Melani Aguilar CNM [Primary Care Provider] - 1 Week Rhea Garner MD [Medical Doctor] - 3 Days Additional Instructions: 1-Please take Ibuprofen PO as directed to alleviate pain and swelling. 2-Please apply ice, keep your Knee immobilized. 3- Please f/u with Orthopedic or your PCP in 3 dasy if symotoms are not improving for further evaluation and treatment.
--- NOTE | 2017-02-12 17:53 | RAD ---
INDICATION: Right knee pain COMPARISON: None TECHNIQUE: AP, lateral, tunnel, and sunrise views were obtained. FINDINGS: The bony structures, joint spaces, and soft tissues are normal for age. IMPRESSION: NEGATIVE EXAMINATION.
== END 2017-02-12 18:16 | disposition home or self-care (01) ==
LOC: UCEAST 15:21
DX: M25.561 Pain in right knee (principal); Z87.891 Personal history of nicotine dependence
CPT/HCPCS: 99212; G0463

== ENCOUNTER 2017-02-18 17:19 | Emergency (ER) | payer SELFPAY ==
[2017-02-18 17:34] VITALS: BP 129/79
--- NOTE | 2017-02-18 17:45 | UC ---
Knee Pain HPI - HPI Summary HPI Summary: 32 YEAR OLD FEMALE PRESENTS FOR A FOLLOW UP OF RIGHT KNEE PAIN SECONDARY TO A FALL AT WORK. - History of Current Complaint Chief Complaint: UCLowerExtremity Stated Complaint: knee injury follow up Time Seen by Provider: 02/18/17 17:36 Hx Obtained From: Patient Hx Last Menstrual Period: 02/02/17 Onset/Duration: Lasting Days Severity Initially: Moderate Severity Currently: Moderate Pain Scale Used: 0-10 Numeric - 4 Aggravating Factor(s): Movement Associated Signs And Symptoms: Positive: Swelling Able to Bear Weight: Yes - Allergies/Home Medications Allergies/Adverse Reactions: Allergies Allergy/AdvReac Type Severity Reaction Status Date / Time Sulfa Antibiotics Allergy Severe N/V, Verified 02/18/17 17:35 "MAKES ME GASSY" Hydrocodone [From Vicodin] Allergy Itching Verified 02/18/17 17:35 PMH/Surg Hx/FS Hx/Imm Hx Previously Healthy: Yes - Surgical History Surgical History: Yes Surgery Procedure, Year, and Place: cardiac ablation for SVT. c section - Family History Known Family History: Positive: None, Cardiac Disease, Hypertension, Diabetes Family History: Dyslipidemia - Social History Alcohol Use: None Substance Use Type: None Smoking Status (MU): Former Smoker Type: Cigarettes Amount Used/How Often: 1 cig a day currently, hasn't had any in one week Have You Smoked in the Last Year: Yes When Did the Patient Quit Smoking/Using Tobacco: JUNE 2014 Household Exposure Type: Cigarettes - Immunization History Most Recent Influenza Vaccination: none Most Recent Tetanus Shot: unknown Most Recent Pneumonia Vaccination: none Review of Systems Constitutional: Negative Skin: Negative Eyes: Negative ENT: Negative Respiratory: Negative Cardiovascular: Negative Gastrointestinal: Negative Genitourinary: Negative Motor: Negative Neurovascular: Negative Musculoskeletal: Other: - RIGHT KNEE WELLING Neurological: Negative Psychological: Negative All Other Systems Reviewed And Are Negative: Yes Physical Exam Triage Information Reviewed: Yes Vital Signs: Initial Vital Signs Temp 36.6 C 02/18/17 17:31 Pulse 94 02/18/17 17:31 Resp 20 02/18/17 17:31 BP 129/79 02/18/17 17:31 Pulse Ox 100 02/18/17 17:31 Vital Signs Reviewed: Yes Eye Exam: Normal ENT Exam: Normal Dental Exam: Normal Neck exam: Normal Neck: Positive: 1 Respiratory Exam: Normal Cardiovascular Exam: Normal Abdominal Exam: Normal Musculoskeletal: Positive: Other: - RIGHT KNEE PAIN/SWELLING Neurological Exam: Normal Psychological Exam: Normal Skin Exam: Normal Knee Pain Course/Dx - Differential Dx/Diagnosis Provider Diagnoses: RIGHT KNEE PAIN/SWELLING Discharge - Discharge Plan Condition: Stable Disposition: HOME Prescriptions: Diclofenac 1% GEL (NF) [Voltaren 1% GEL (NF)] 2 gm TOPICAL BID #1 tube Patient Education Materials: Knee Pain (ED) Forms: *Work Release Referrals: Melani Aguilar CNM [[facility]] -
== END 2017-02-18 18:00 | disposition home or self-care (01) ==
LOC: UCEAST 17:19
DX: M25.461 Effusion, right knee (principal); Z88.2 Allergy status to sulfonamides; Z87.891 Personal history of nicotine dependence
CPT/HCPCS: 99212; G0463

== ENCOUNTER 2017-03-15 17:52 | Emergency (ER) | payer BC, OTHER ==
--- NOTE | 2017-03-15 18:52 | RAD ---
Indication: LEFT knee pain following injury. Comparison: No relevant prior exams available on the [facility] for comparison. Technique: AP and lateral views LEFT knee. Report: Normal alignment and preserved joint spaces. Negative for effusion or fracture. Unremarkable soft tissue contours. IMPRESSION: Negative exam.
[2017-03-15] MEDS ORDERED: Ibuprofen TAB* 600 MG PO ONE (20:35)
--- NOTE | 2017-03-15 20:39 | ED ---
Lower Extremity - HPI Summary HPI Summary: Patient presents to the ED with left knee pain after shutting it in a car door. She has a contusion and some swelling to the medial knee. She is ambulating but with pain. Denies any other injuries. Denies redness, tingling, numbness or temperature changes. Denies decreased sensation in the knee, the lower leg or the thigh. Denies pain in the hip or ankle. Full ROM without compromise. Pulses +2 bilaterally. Cap refill < 2 sec. - History of Current Complaint Chief Complaint: EDExtremityLower Stated Complaint: LT KNEE INJURY Time Seen by Provider: 03/15/17 18:15 Hx Obtained From: Patient Hx Last Menstrual Period: 02/02/17 Mechanism Of Injury: Blunt Trauma Onset of Pain: Immediate Onset/Duration: Minutes Severity Initially: Mild Severity Currently: Mild Pain Intensity: 6 Pain Scale Used: 0-10 Numeric Timing: Constant Location: Is Discrete @ - left medial knee Associated Signs And Symptoms: Positive: Swelling Aggravating Factor(s): Standing, Ambulation Alleviating Factor(s): Rest, Elevation Able to Bear Weight: Yes - Risk Factors Gout Risk Factors: Negative DVT Risk Factors: Negative Septic Arthritis Risk Factor: Negative - Allergies/Home Medications Allergies/Adverse Reactions: Allergies Allergy/AdvReac Type Severity Reaction Status Date / Time Sulfa Antibiotics Allergy Severe N/V, Verified 02/18/17 17:35 "MAKES ME GASSY" Hydrocodone [From Vicodin] Allergy Itching Verified 02/18/17 17:35 PMH/Surg Hx/FS Hx/Imm Hx Previously Healthy: Yes Endocrine/Hematology History: Denies: Hx Diabetes, Hx Thyroid Disease Cardiovascular History: Denies: Hx Hypertension Respiratory History: Reports: Hx Asthma Denies: Hx Chronic Obstructive Pulmonary Disease (COPD) GI History: Reports: Hx Ulcer Musculoskeletal History: Denies: Hx Rheumatoid Arthritis, Hx Osteoporosis, Hx Scoliosis Sensory History: Reports: Hx Contacts or Glasses Opthamlomology History: Reports: Hx Contacts or Glasses Neurological History: Denies: Hx Headaches, Other Neuro Impairments/Disorders - Surgical History Surgery Procedure, Year, and Place: cardiac ablation for SVT. c section - Immunization History Hx Pertussis Vaccination: No Immunizations Up to Date: Unable to Obtain/Confirm Infectious Disease History: No Infectious Disease History: Denies: Hx Clostridium Difficile, Hx Hepatitis, Hx Human Immunodeficiency Virus (HIV), Hx of Known/Suspected MRSA, Hx Shingles, Hx Tuberculosis, Hx Known/ Suspected VRE, Hx Known/Suspected VRSA, History Other Infectious Disease, Traveled Outside the [place] in Last 30 Days - Family History Known Family History: Positive: None, Cardiac Disease, Hypertension, Diabetes Family History: Dyslipidemia - Social History Occupation: Employed Full-time Lives: With Family Alcohol Use: None Hx Substance Use: No Substance Use Type: Reports: None Hx Tobacco Use: Yes Smoking Status (MU): Former Smoker Type: Cigarettes Amount Used/How Often: 1 cig a day currently, hasn't had any in one week Have You Smoked in the Last Year: Yes Review of Systems Constitutional: Negative Eyes: Negative Cardiovascular: Negative Respiratory: Negative Positive: no symptoms reported, see HPI Positive: Arthralgia - left medial knee pain Neurological: Negative Psychological: Normal All Other Systems Reviewed And Are Negative: Yes Physical Exam Triage Information Reviewed: Yes Vital Signs On Initial Exam: Initial Vitals Temp Pulse Resp BP Pulse Ox 97.8 F 92 20 137/87 100 03/15/17 18:01 03/15/17 18:01 03/15/17 18:01 03/15/17 18:01 03/15/17 18:01 Vital Signs Reviewed: Yes Appearance: Positive: Well-Appearing, Well-Nourished Skin: Positive: Warm, Skin Color Reflects Adequate Perfusion Head/Face: Positive: Normal Head/Face Inspection Neck: Positive: Supple, No Lymphadenopathy Respiratory/Lung Sounds: Positive: Clear to Auscultation, Breath Sounds Present Cardiovascular: Positive: Normal, RRR, Pulses are Symmetrical in both Upper and Lower Extremities Musculoskeletal: Positive: Normal, Strength/ROM Intact, Pain @ - medial left knee Neurological: Positive: Sensory/Motor Intact, Alert, Oriented to Person Place, Time, Speech Normal Psychiatric: Positive: Normal AVPU Assessment: Alert - Christa Coma Scale Coma Scale Total: 15 Diagnostics - Vital Signs Vital Signs Temp Pulse Resp BP Pulse Ox 03/15/17 18:01 97.8 F 92 20 137/87 100 - Laboratory Lab Statement: Any lab studies that have been ordered have been reviewed, and results considered in the medical decision making process. Lower Extremity Course/Dx - Course Course Of Treatment: On physical exam, she has a contusion and some swelling to the medial knee. She is ambulating but with pain. Denies any other injuries. Denies redness, tingling, numbness or temperature changes. Denies decreased sensation in the knee, the lower leg or the thigh. Denies pain in the hip or ankle. Full ROM without compromise. Pulses +2 bilaterally. Cap refill < 2 sec. Xray negative for acute findings or fracture. Jairo wrapped. Ibuprofen 600mg given in ED. Return precautions given. Patient made aware of plan and is OK with discharge. Patient will follow up with PCP and return if symptoms become worse. Return precautions given, medications and side effects reviewed. - Diagnoses Differential Diagnosis/HQI/PQRI: Positive: Contusion, Sprain, Strain Provider Diagnoses: Contusion, knee Discharge - Discharge Plan Condition: Stable Disposition: HOME Prescriptions: Ibuprofen TAB* [Motrin TAB* 600 MG] 600 mg PO Q8H PRN #30 tab MDD 3 PRN Reason: Pain Patient Education Materials: Contusion in Adults (ED) Referrals: Ingrid Islas MD [Primary Care Provider] - Additional Instructions: Ice Rest Ibuprofen 600mg three times daily Keep the area jairo wrapped x 3 days This will heal, but may take a few days Stay off the leg as much as possible
[2017-03-15 21:24] VITALS: BP 139/85
== END 2017-03-15 20:45 | disposition home or self-care (01) ==
LOC: ED 17:52
DX: S80.02XA Contusion of left knee, initial encounter (principal); W23.0XXA Caught, crushed, jammed, or pinched between moving objects, initial encounter; Y92.9 Unspecified place or not applicable; Z88.2 Allergy status to sulfonamides; Z88.8 Allergy status to other drugs, medicaments and biological substances; Z87.891 Personal history of nicotine dependence
CPT/HCPCS: 99282; A9270-GY

== ENCOUNTER 2017-03-21 14:13 | Emergency (ER) | payer BC ==
[2017-03-21 14:39] VITALS: BP 138/77
--- NOTE | 2017-03-24 19:31 | UC ---
Cosmo Gastelum Alfonso, scribed for Jazmine Stover DO on 03/21/17 at 1514 . Skin Complaint HPI - HPI Summary HPI Summary: This patient is a 32 year old F presenting to [facility] with a chief complaint of a tick bite at her right flank noticed earlier today. The seemingly not engorged tick has been removed and she has the tick with her. The patient rates the pain 4/10 in severity. Symptoms aggravated by nothing. Symptoms alleviated by nothing. Patient reports mild right flank pain at site of tick bite. Patient denies fever, chills, sore throat, ear ache, nausea, vomiting, abdominal pain, headache, fatigue, myalgia, and rash. Medications reviewed this visit. - History of Current Complaint Chief Complaint: UCSkin Time Seen by Provider: 03/21/17 14:57 Stated Complaint: TICK Hx Obtained From: Patient Hx Last Menstrual Period: [id number] Onset/Duration: Sudden Onset, Lasting Hours, Resolved Timing: Constant Pain Intensity: 4 Pain Scale Used: 0-10 Numeric Location: Other - right flank Aggravating Factor(s): Nothing Alleviating Factor(s): Nothing Associated Signs & Symptoms: Negative: Nausea, Vomiting, Fever, Chills, Rash, Abdominal Pain Related History: Insect Bite/Sting - Tick - Allergy/Home Medications Allergies/Adverse Reactions: Allergies Allergy/AdvReac Type Severity Reaction Status Date / Time Sulfa Antibiotics Allergy Severe N/V, Verified 03/21/17 14:39 "MAKES ME GASSY" Hydrocodone [From Vicodin] Allergy Itching Verified 03/21/17 14:39 Review of Systems Constitutional: Other - Negative fever, chills Skin: Other - tick bite at her right flank, mild right flank pain at site of tick bite; Negative rash ENT: Other - Negative sore throat, ear ache Gastrointestinal: Other - Negative N/V, abd pain Musculoskeletal: Other: - Negative myalgia Neurological: Other - Negative headache, fatigue All Other Systems Reviewed And Are Negative: Yes PMH/Surg Hx/FS Hx/Imm Hx - Additional Past Medical History Additional PMH: cardiac ablation for SVT, Previously Healthy: No - Surgical History Surgical History: Yes Surgery Procedure, Year, and Place: cardiac ablation for SVT. c section - Family History Known Family History: Positive: Cardiac Disease, Hypertension, Diabetes Family History: Dyslipidemia - Social History Alcohol Use: None Substance Use Type: None Smoking Status (MU): Former Smoker Type: Cigarettes Amount Used/How Often: 1 cig a day currently, hasn't had any in one week Have You Smoked in the Last Year: Yes When Did the Patient Quit Smoking/Using Tobacco: JUNE 2014 Household Exposure Type: Cigarettes - Immunization History Most Recent Influenza Vaccination: none Most Recent Tetanus Shot: unknown Most Recent Pneumonia Vaccination: none Physical Exam Triage Information Reviewed: Yes Appearance: Well-Appearing, No Pain Distress, Obese Vital Signs: Initial Vital Signs Temp 97.7 F 03/21/17 14:35 Pulse 86 03/21/17 14:35 Resp 19 03/21/17 14:35 BP 138/77 03/21/17 14:35 Pulse Ox 100 03/21/17 14:35 Vital Signs Reviewed: Yes Eyes: Positive: Conjunctiva Clear. Negative: Discharge ENT: Positive: Hearing grossly normal, TMs normal. Negative: Tonsillar swelling , Tonsillar exudate, Trismus, Muffled/hoarse voice Neck: Positive: Supple, Nontender Respiratory: Positive: Chest non-tender, Lungs clear, Normal breath sounds, No respiratory distress Cardiovascular: Positive: RRR, No Murmur Abdomen Description: Positive: Nontender, Soft. Negative: Distended, Guarding Bowel Sounds: Positive: Present Musculoskeletal Exam: Normal Neurological: Positive: Alert, Muscle Tone Normal Psychological Exam: Normal Psychological: Positive: Age Appropriate Behavior Skin: Positive: Other - Normal, Warm, Dry, Normal color Course/Dx - Course Course Of Treatment: This patient is a 32 year old F presenting to [facility] with a chief complaint of a tick bite at her right flank noticed earlier today. The seemingly not engorged tick has been removed and she has the tick with her. The patient rates the pain 4/10 in severity. Symptoms aggravated by nothing. Symptoms alleviated by nothing. Patient reports mild right flank pain at site of tick bite. Patient denies fever, chills, sore throat, ear ache, nausea, vomiting, abdominal pain, headache, fatigue, myalgia, and rash. Medications reviewed this visit. Patient will be discharged with follow up from PCP. The patient is agreeable with this plan. - Diagnoses Provider Diagnoses: tick bite Discharge - Discharge Plan Condition: Stable Disposition: HOME Patient Education Materials: Tick Bite (ED) Referrals: Ingrid Islas MD [Primary Care Provider] - If Needed The documentation as recorded by the Cosmo patrick Alfonso accurately reflects the service I personally performed and the decisions made by , Jazmine Stover DO.
== END 2017-03-21 15:27 | disposition home or self-care (01) ==
LOC: UCEAST 14:13
DX: S30.861A Insect bite (nonvenomous) of abdominal wall, initial encounter (principal); Y92.9 Unspecified place or not applicable; W57.XXXA Bitten or stung by nonvenomous insect and other nonvenomous arthropods, initial encounter; Z88.5 Allergy status to narcotic agent; Z88.2 Allergy status to sulfonamides; Z87.891 Personal history of nicotine dependence; E66.9 Obesity, unspecified
CPT/HCPCS: 99211; G0463

== ENCOUNTER 2018-03-06 19:47 | Emergency (ER) | payer OTHER ==
[2018-03-06 20:01] VITALS: BP 133/90
--- NOTE | 2018-03-06 20:21 | UC ---
Lower Extremity/Ankle HPI - HPI Summary HPI Summary: 33-year-old woman comes in with a complaint of right ankle pain. 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 Her ankle pain is primarily in the medial aspect. She is able to weight-bear but weightbearing makes the pain worse. Elevating and resting the ankle makes the pain better. Denies any other injuries. - History of Current Complaint Chief Complaint: UCLowerExtremity Stated Complaint: ANKLE Time Seen by Provider: 03/06/18 20:04 Hx Last Menstrual Period: 1 week ago Pain Intensity: 5 - Allergies/Home Medications Allergies/Adverse Reactions: Allergies Allergy/AdvReac Type Severity Reaction Status Date / Time hydrocodone Allergy Itching Verified 03/06/18 20:01 Sulfa (Sulfonamide Allergy Nausea And Verified 03/06/18 20:01 Antibiotics) Vomiting Home Medications: Home Medications Cyclobenzaprine TAB* [Flexeril 10 MG TAB*] 10 mg PO 03/06/18 [History] Ibuprofen TAB* [Advil TAB*] 800 mg PO ONCE PRN 03/06/18 [History Confirmed 03/06] PMH/Surg Hx/FS Hx/Imm Hx - Additional Past Medical History Additional PMH: ANEMIA - Surgical History Surgical History: Yes Surgery Procedure, Year, and Place: cardiac ablation for SVT, November 2016. c section 2016 - Family History Known Family History: Positive: None, Cardiac Disease, Hypertension, Diabetes Family History: Dyslipidemia - Social History Alcohol Use: Rare Substance Use Type: None Smoking Status (MU): Former Smoker Type: Cigarettes Amount Used/How Often: 1 cig a day currently, hasn't had any in one week Have You Smoked in the Last Year: Yes When Did the Patient Quit Smoking/Using Tobacco: JUNE 2014 Household Exposure Type: Cigarettes - Immunization History Most Recent Influenza Vaccination: none Most Recent Tetanus Shot: unknown Most Recent Pneumonia Vaccination: none Review of Systems Constitutional: Negative Skin: Negative Eyes: Negative ENT: Negative Respiratory: Negative Cardiovascular: Negative Gastrointestinal: Negative Motor: Negative Neurovascular: Negative Musculoskeletal: Other: - SEE HPI Neurological: Negative Psychological: Negative Is Patient Immunocompromised?: No All Other Systems Reviewed And Are Negative: Yes Physical Exam Triage Information Reviewed: Yes Appearance: Well-Appearing, No Pain Distress, Well-Nourished Vital Signs: Initial Vital Signs Temp 97 F 03/06/18 19:57 Pulse 84 03/06/18 19:57 Resp 16 03/06/18 19:57 BP 133/90 03/06/18 19:57 Pulse Ox 100 03/06/18 19:57 Vital Signs Reviewed: Yes Eye Exam: Normal Eyes: Positive: Conjunctiva Clear Neck exam: Normal Neck: Positive: Supple Respiratory: Positive: No respiratory distress Musculoskeletal: Positive: Other: - Right ankle is tender over the distal medial malleolus. There is minimal swelling. The foot is nontender the lateral malleolus is nontender. Achilles tendon is nontender and intact. Normal capillary refill. No skin break. Neurological Exam: Normal Neurological: Positive: Alert, Muscle Tone Normal Psychological Exam: Normal Psychological: Positive: Age Appropriate Behavior Skin Exam: Normal Lower Extremity Course/Dx - Course Course Of Treatment: I discussed the x-ray with the patient. I do not see any fracture. Radiologist reading is pending. The plan is to put an Jairo wrap on and a gel splint by nursing. The patient declined crutches at this time. Ice and elevation rests and ibuprofen. Overriding the patient to be out of work until March 21, 2018. I am going to refer her to occupational medicine. If she is not able to see occupational medicine for March 11 I told her to return here if she needed a evaluation for going back to work on the . - Differential Dx/Diagnosis Provider Diagnoses: RIGHT ANKLE SPRAIN Discharge - Sign-Out/Discharge Documenting (check all that apply): Patient Departure All imaging exams completed and their final reports reviewed: No - Discharge Plan Condition: Stable Disposition: HOME Patient Education Materials: Ankle Sprain (ED) Referrals: Ingrid Islas MD [Primary Care Provider] - Abran Brooke MD [Medical Doctor] - Additional Instructions: FOLLOW UP WITH OCCUPATIONAL MEDICINE, DR BROOKE. CALL HIS OFFICE TOMORROW TO ARRANGE FOLLOW UP. GET RECHECKED FOR ANY WORSENING OF YOUR CONDITION OR QUESTIONS OR CONCERNS. - Billing Disposition and Condition Condition: STABLE Disposition: Home
--- NOTE | 2018-03-07 07:48 | RAD ---
HISTORY: Pain, medial right ankle pain COMPARISONS: None VIEWS: 3 , Frontal, lateral, and oblique views of the right ankle FINDINGS: BONE DENSITY: Normal. BONES: There is no displaced fracture. JOINTS: There is no arthropathy. ALIGNMENT: There is no dislocation. SOFT TISSUES: Unremarkable. OTHER FINDINGS: None. IMPRESSION: NO ACUTE OSSEOUS INJURY. IF SYMPTOMS PERSIST, RECOMMEND REPEAT IMAGING. R0
--- NOTE | 2018-03-07 08:34 | UC ---
- Progress Note Progress Note: Patient Name: JUSTINA MIRELES Medical Record#: [id number] Ordering Physician: Felix NORMAN Acct.#: [id number] : 1985 Age: 33 Sex: F Location: [facility] Exam Date: 03/06/181951 ADM Status: DEP ER Order Information: ANKLE RIGHT 3+VWS Accession Number: [id number] CPT: 04196 HISTORY: Pain, medial right ankle pain COMPARISONS: None VIEWS: 3 , Frontal, lateral, and oblique views of the right ankle FINDINGS: BONE DENSITY: Normal. BONES: There is no displaced fracture. JOINTS: There is no arthropathy. ALIGNMENT: There is no dislocation. SOFT TISSUES: Unremarkable. OTHER FINDINGS: None. IMPRESSION: NO ACUTE OSSEOUS INJURY. IF SYMPTOMS PERSIST, RECOMMEND REPEAT IMAGING. R0 <Electronically signed by Ronnie Larose MD in OV> 03/07/18743 Dictated By: Ronnie Larose MD Dictated Date/Time: 03/07/18743 Transcribed Date/Time: 03/07/18743 Copy to: CC:Ingrid Islas MD; Felix NORMAN; Emir Fonseca MD Imaging - [facility] Imaging - [facility] [address] [place] [address] ph ([phone]) ph ([phone]) ph ([phone]) This report is only to be considered final once signed by the Provider(s) as displayed in the "<Electronically Signed by >" field (s). Absence of a signature indicates the report is in a draft status and still needs to be finalized. In the event this document was created by someone other than the signing Provider, the individual initiating the document will be listed in the "Entered by:" or "Dictated by:" degroot. 1 of 1 Discharge - Sign-Out/Discharge Documenting (check all that apply): Post-Discharge Follow Up All imaging exams completed and their final reports reviewed: Yes - Discharge Plan Condition: Stable Disposition: HOME Patient Education Materials: Ankle Sprain (ED) Forms: *Work Release Referrals: Ingrid Islas MD [Primary Care Provider] - Abran Mariano MD [Medical Doctor] - Additional Instructions: FOLLOW UP WITH OCCUPATIONAL MEDICINE, DR MARIANO. CALL HIS OFFICE TOMORROW TO ARRANGE FOLLOW UP. GET RECHECKED FOR ANY WORSENING OF YOUR CONDITION OR QUESTIONS OR CONCERNS. - Billing Disposition and Condition Condition: STABLE Disposition: Home
== END 2018-03-06 20:46 | disposition home or self-care (01) ==
LOC: UCEAST 19:47
DX: S93.401A Sprain of unspecified ligament of right ankle, initial encounter (principal); Z88.2 Allergy status to sulfonamides; Z88.5 Allergy status to narcotic agent; Z87.891 Personal history of nicotine dependence; X58.XXXA Exposure to other specified factors, initial encounter; Y93.89 Activity, other specified; Y92.9 Unspecified place or not applicable; Y99.0 Civilian activity done for income or pay
CPT/HCPCS: 99212; G0463

== ENCOUNTER 2018-03-13 20:51 | Emergency (ER) | payer OTHER ==
[2018-03-13 21:03] VITALS: BP 130/97
--- NOTE | 2018-03-13 21:09 | UC ---
Lower Extremity/Ankle HPI - HPI Summary HPI Summary: Patient presents with ongoing ankle pain. Patient states Edd one week ago she hurt her ankle during a restraint. Patient works at [employer]. Patient states she was seen here. Given an Jairo wrap, air splint after negative x-ray. Patient states refuse crutches. Patient states she didn't not use crutches, loss of a limp, and has ongoing pain. Patient states she scheduled to return to work tomorrow for Saturday sending is concerned. Patient has not called her doctor. No analgesia today. Patient states when she walks she gets shooting pain up the lateral aspect of the leg. No other injuries. No other concerns. Patient's medications reviewed this visit - History of Current Complaint Chief Complaint: UCLowerExtremity Stated Complaint: ANKLE PAIN Time Seen by Provider: 03/13/18 21:03 Hx Last Menstrual Period: [id number] Pain Intensity: 6 - Allergies/Home Medications Allergies/Adverse Reactions: Allergies Allergy/AdvReac Type Severity Reaction Status Date / Time hydrocodone Allergy Itching Verified 03/13/18 21:02 Sulfa (Sulfonamide Allergy Nausea And Verified 03/13/18 21:02 Antibiotics) Vomiting PMH/Surg Hx/FS Hx/Imm Hx Previously Healthy: Yes - Surgical History Surgical History: Yes Surgery Procedure, Year, and Place: cardiac ablation for SVT, November 2016. c section 2016 - Family History Known Family History: Positive: Cardiac Disease, Hypertension, Diabetes Family History: Dyslipidemia - Social History Occupation: Employed Full-time Lives: With Family Alcohol Use: Rare Substance Use Type: None Smoking Status (MU): Former Smoker Type: Cigarettes Amount Used/How Often: 1 cig a day currently, hasn't had any in one week Have You Smoked in the Last Year: Yes When Did the Patient Quit Smoking/Using Tobacco: JUNE 2014 Household Exposure Type: Cigarettes - Immunization History Most Recent Influenza Vaccination: none Most Recent Tetanus Shot: unknown Most Recent Pneumonia Vaccination: none Review of Systems Constitutional: Negative Skin: Negative Musculoskeletal: Other: - Right ankle All Other Systems Reviewed And Are Negative: Yes Physical Exam - Summary Physical Exam Summary: Vital Signs Reviewed: Yes A+Ox3, no distress Eyes: Conjunctiva Clear ENT: Hearing grossly normal neck: supple Respiratory: Positive: No respiratory distress, No accessory muscle use Cardiovascular: skin color reflect adequate perfusion 2+ DP, PT CBT <2 sec Musculoskeletal Exam: + SLE + flex/ext knee, ankle + TTP medial aspect of ankle + discomfort with inversion, eversion Neurological: Positive: Alert, ambulatory without difficulty + gross sensation throughout Psychological: Positive: Normal Response To Family Skin: Positive: no rash, no ecchymosis no edema Triage Information Reviewed: Yes Vital Signs: Initial Vital Signs Temp 98.0 F 03/13/18 20:57 Pulse 88 03/13/18 20:57 Resp 16 03/13/18 20:57 BP 130/97 03/13/18 20:57 Pulse Ox 100 03/13/18 20:57 Lower Extremity Course/Dx - Course Course Of Treatment: Patient with ongoing pain in the right ankle. Patient with a work injury approximately one week ago. Patient is not using crutches has been walking with a limp. Patient given a new Jairo wrap. Patient has a gel splint at home. Encouraged wear. Patient given crutches. Ice. Motrin/ Tylenol. Patient given contact information for occupational medicine. Patient started to call them tomorrow morning, 03/14/18 for an appointment. Patient was she may be seen tomorrow or Saturday. Patient given a work note to Saturday she is unable to get an appointment tomorrow. Patient states understanding and agreement with plan. Patient works at [employer] states is no modified duty that she could - Differential Dx/Diagnosis Provider Diagnoses: right ankle sprain Discharge - Sign-Out/Discharge Documenting (check all that apply): Patient Departure All imaging exams completed and their final reports reviewed: No Studies - Discharge Plan Condition: Stable Disposition: HOME Patient Education Materials: Ankle Sprain (ED) Forms: *Work Release Referrals: Ingrid Islas MD [Primary Care Provider] - Abran Brooke MD [Medical Doctor] - Additional Instructions: -wear jairo wrap for comfort and support -apply ice (20 min at a time) every 2-3 hours for the next 2 days -use crutches until you can walk normally without a limp -Elevate your leg - this will help with swelling and pain - Alternate ibuprofen (advil, Motrin) 600mg and tylenol every 3 hours for pain. Take with food. Do NOT take for more than 4-5 days -Contact the occupational medicine doctor TOMORROW to schedule a follow-up appointment tomorrow or Saturday - Billing Disposition and Condition Condition: STABLE Disposition: Home
== END 2018-03-13 21:43 | disposition home or self-care (01) ==
LOC: UCEAST 20:51
DX: S93.401A Sprain of unspecified ligament of right ankle, initial encounter (principal); X58.XXXA Exposure to other specified factors, initial encounter; Y93.89 Activity, other specified; Y92.10 Unspecified residential institution as the place of occurrence of the external cause; Y99.0 Civilian activity done for income or pay; Z88.5 Allergy status to narcotic agent; Z88.2 Allergy status to sulfonamides; Z87.891 Personal history of nicotine dependence
CPT/HCPCS: 99213; G0463

== ENCOUNTER 2019-03-13 16:34 | Emergency (ER) | payer MEDICAID ==
[2019-03-13 16:42] VITALS: BP 150/97
== END 2019-03-13 18:07 | disposition left against medical advice (07) ==
LOC: ED 16:34
DX: M54.9 Dorsalgia, unspecified (principal); Z53.21 Procedure and treatment not carried out due to patient leaving prior to being seen by health care provider